=== PATIENT | female | born 1975 | race Caucasian/White ===

== ENCOUNTER 2017-05-11 15:04 | Inpatient (IN) | payer BC ==
[2017-05-11] MEDS ORDERED: Promethazine HCl 25 MG/ML VIAL IM PRN (15:34)
[2017-05-11] MEDS ORDERED: Zolpidem Tartrate 5 MG TAB PO PRN (15:34)
[2017-05-11] MEDS ORDERED: Calcium Gluc 4.6 MEQ/10 ML (100 MG/ML) SLOW IVP PRN (15:34)
[2017-05-11] MEDS ORDERED: Acetaminophen 500 MG TAB PO PRN (15:34)
[2017-05-11] MEDS ORDERED: Ondansetron HCl/PF 4 MG/2 ML Vial IVP PRN (15:34)
--- NOTE | 2017-05-11 15:43 | PDOC.LDHP ---
Labor and Delivery H&P HPI: 42 y/o WF prior c/s with IVF dichorionic/diamnionic twin gestation. Current gestational age 36 3/7 weeks by EDC of 06/05/17. Has had normal interval rate of growth u/s and BPP 's since 30 weeks. Astma has been stable on maintenance med of nasonex/albuterol/singulair. Allergies/Adverse Reactions: Allergies Allergy/AdvReac Type Severity Reaction Status Date / Time ciprofloxacin [From Cipro] Allergy Rash Verified 04/26/16 12:25 ciprofloxacin HCl Allergy Rash Verified 04/26/16 12:25 [From Cipro] latex Allergy red, itchy Verified 04/26/16 12:25 skin Sulfa (Sulfonamide Allergy Rash Verified 04/26/16 12:25 Antibiotics)
[2017-05-11 16:18] VITALS: BMI 42.7
[2017-05-11] MEDS ORDERED: CEFAZOLIN/Water 2 GM/20 ML SYRINGE SLOW IVP SCH (16:45)
[2017-05-11] MEDS ORDERED: Bicitra 30 ML UDCUP PO SCH (16:45)
[2017-05-11 17:03] LABS: Hematocrit 36.8 % (36.0-47.0); Mean Platelet Volume 7.9 fL (7.4-10.4); Red Blood Cell (RBC) Count 4.08 mill/uL (4.20-5.40); White Blood Cell (WBC) Count 8.1 thou/uL (4.8-10.8)
[2017-05-11 17:18] LABS: ALT (SGPT) 19 U/L (8-55); AST (SGOT) 27 U/L (5-34); Alkaline Phosphatase 182 U/L (40-150); Anion Gap 13 mmol/L (10-20); BUN (Urea Nitrogen) 9 mg/dL (7.0-18.7); Bilirubin, Total 0.4 mg/dL (0.2-1.2); Calc. Creatinine Clearance 203 mL/min (70-130); Calcium 9.7 mg/dL (7.8-10.44); Carbon Dioxide 22 mmol/L (22-29); Chloride 105 mmol/L (98-107); Estimated GFR-MDRD Greater than 90; Globulin 2.8 g/dL (2.4-3.5); Protein, Total 5.8 g/dL (6.0-8.3)
[2017-05-12] MEDS ORDERED: Naloxone HCl 0.4 mg/ml Vial IVP PRN ×2 (06:49)
[2017-05-12] MEDS ORDERED: HYDROmorphone 2 MG/ML VIAL SLOW IVP PRN (06:49)
[2017-05-12] MEDS ORDERED: Eucerin (Mineral Oil/Petrolatum,White) 30 gm Jar TOP PRN (06:49)
[2017-05-12] MEDS ORDERED: Ondansetron HCl/PF 4 MG/2 ML Vial IVP PRN ×2 (06:49)
[2017-05-12] MEDS ORDERED: diphenhydrAMINE 50 MG/ML VIAL IVP PRN (06:49)
[2017-05-12] MEDS ORDERED: Naloxone HCl 0.4 mg/ml Vial IV PRN (06:49)
[2017-05-12] MEDS ORDERED: Promethazine HCl 25 MG SUPP PR PRN (06:49)
[2017-05-12] MEDS ORDERED: Meperidine HCl/PF 25 MG/ML VIAL SLOW IVP PRN (06:49)
[2017-05-12] MEDS ORDERED: Promethazine HCl 25 MG/ML VIAL IM PRN (06:49)
[2017-05-12] MEDS ORDERED: ePHEDrine/0.9% NaCl/PF SYRINGE 50 mg/10 ml ONE (06:59)
[2017-05-12] MEDS ORDERED: Ondansetron HCl/PF 4 MG/2 ML Vial ONE (06:59)
[2017-05-12] MEDS ORDERED: Oxytocin 10 UNITS/ML VIAL ONE (06:59)
[2017-05-12] MEDS ORDERED: Morphine PF 1 MG/ML SYR ONE (06:59)
[2017-05-12] MEDS ORDERED: Communication Order-Pharmacy FS SCH (07:00)
[2017-05-12] MEDS ORDERED: Ketorolac Tromethamine 30 MG/ML VIAL IVP SCH (07:00)
[2017-05-12] MEDS ORDERED: PHENYLEPHRINE-NS 100 MCG/ML 10 ML SYRINGE ONE (07:25)
[2017-05-12] MEDS ORDERED: Fentanyl 100 MCG/2 ML VIAL ONE (07:42)
--- NOTE | 2017-05-12 08:09 | OP ---
DATE OF SERVICE: 05/12/2017 This dictations is just to document that I was first press operator on a for twins, primary by Dr. Rosario Tyler.
[2017-05-12] MEDS ORDERED: Adacel (T-DAP) 0.5 ML VIAL IM ONE (08:24)
[2017-05-12] MEDS ORDERED: Simethicone Chewable 80 MG TAB PO PRN (08:24)
[2017-05-12] MEDS ORDERED: Lanolin Ointment 7 GM TUBE TOP PRN (08:24)
--- NOTE | 2017-05-12 09:20 | PDOC.OPDEL ---
OB Operative/Delivery Note Delivery Dr/Surgeon: Jayson Assist: Maribell Pre-Delivery Diagnosis: scheduled section Procedure/Post Delivery Dx: repeat low transverse CS Weeks gestation: 36 Anesthesia: spinal - Findings A Sex: female Weight: 6 lb 11 oz - 5 min: 8 - 10 min: 9 B Sex: male Weight: 5 lb 7 oz - 5 min: 8 - 10 min: 9 - Additional Findings/Plan Placenta delivered: manual removal Estimated blood loss: 750ml Post delivery plan: routine recovery
[2017-05-12] MEDS ORDERED: LR / Pitocin 40 units/1000 ml 1,000 ML ONE (09:35)
[2017-05-12] MEDS: Docusate (Surfak) 240 MG CAP PO SCH ×2 (10:48→20:29)
[2017-05-12] MEDS ORDERED: Sodium Chloride 0.9% 10 ML ONE (11:54)
[2017-05-12] MEDS: Prenatal Vitamin 1 TAB PO SCH (13:36)
--- NOTE | 2017-05-12 14:10 | OP ---
DATE OF SURGERY: 05/12/2017 PREOPERATIVE DIAGNOSES: 1. A 42-year-old white female, G4, P1, A2 at prior section with 36 weeks, 4 days, dichorio debra diamniotic twin gestation. 2. Mild gestational hypertension. 3. Prior section. POSTOPERATIVE DIAGNOSES: 1. A 42-year-old white female, G4, P1, A2 at prior section with 36 weeks, 4 days, dichorio debra diamniotic twin gestation. 2. Mild gestational hypertension. 3. Prior section. PROCEDURE PERFORMED: Repeat low transverse section without extension. SURGEON: Rosario Tyler M.D. FISCAL ACCOUNTANT SURGEON: Quinten Morris M.D. ANESTHESIA: Spinal block. ESTIMATED BLOOD LOSS: 750 mL. COMPLICATIONS: None. COUNTS: Correct x2. ANTIBIOTICS: Ancef 2 grams IV collection support specialist to the OR. FINDINGS: 1. Twin A vigorous female, Apgars 8 and 9, weight 6 pounds 11 ounces, clear amniotic fluid. 2. Twin B vertex presentation male, Apgars 8 and 9, weight 5 pounds 7 ounces. Clear amniotic fluid. 3. Dichorionic twin . 4. Normal appearing fallopian tubes and ovaries. DISPOSITION: Recovery room, stable. DESCRIPTION OF OPERATIVE PROCEDURE: The patient previously received informed consent in regards to surgery. She was taken back to the operating room where she received a spinal block without complic ations. She was placed in the supine position, prepped and draped in usual sterile fashion. Gordon catheter and SCDs, PlexiPulses had been placed. A Pfannenstiel incision was made through the lower abdomen through the previous scar site. It was carried down the fascia. Fascia was nicked in midli ne. Fascial incision was extended bilaterally using curved Anaya scissors. The rectus fascia was di ssected superiorly and inferiorly off the rectus muscle belly. Rectus muscle belly was divided in t he midline. The peritoneal cavity was entered. An Chacho O retractor was placed. The bladder flap was created in usual fashion. A 2 cm hysterotomy incision was made in the lower uterine segment. This was extended via finger fractionation. Twin A with amniotic bag was ruptured and delivered in the vertex presentation. The cord was doubly clamped and cut and handed to pediatric team in attend [facility]. Then, twin B with amniotic bag was ruptured and was also delivered in the vertex presentation . Cord was doubly clamped and cut and handed to the pediatric team in attendance. The placentas we re then manually extracted and sent to pathology. The uterus was curetted of any remaining placenta l fragments with dry laparotomy sponge. Hysterotomy incision was then closed with running locking # 1 Monocryl suture. An O'Grayson stitch was placed in the left angle of the uterine hysterotomy incisi on due to some actively bleeding vessels with securing hemostasis. The Chacho O retractor was then removed. The pelvis was irrigated. Again hemostasis was confirmed of the hysterotomy site. The re ctus muscle bellies were noted to be hemostatic prior to fascial closure. The fascia was closed wit h 0 PDS suture x2 in running continuous fashion. Subcutaneous tissue was irrigated and noted be hem ostatic, and was approximated with interrupted 2-0 chromic sutures. The skin was closed with staple s. Surgery was terminated. No anesthetic or surgical complications.
[2017-05-12] MEDS ORDERED: Meperidine HCl/PF 25 MG/ML VIAL IM PRN (19:00)
[2017-05-12] MEDS ORDERED: Hydrocerin (Eucerin) Cream 120 gm Jar TOP PRN (20:18)
[2017-05-12] MEDS: Ketorolac Tromethamine 30 MG/ML VIAL IVP PRN (20:28)
[2017-05-12] MEDS: hydrOXYzine 25 MG TAB PO PRN (20:29)
[2017-05-13] MEDS ORDERED: Sodium Chloride 0.9% 10 ML ONE ×2 (04:35→05:29)
[2017-05-13] MEDS: Ketorolac Tromethamine 30 MG/ML VIAL IVP PRN (05:28)
[2017-05-13] MEDS: hydrOXYzine 25 MG TAB PO PRN (05:30)
[2017-05-13 05:36] LABS: Hematocrit 34.1 % (36.0-47.0); Red Blood Cell (RBC) Count 3.73 mill/uL (4.20-5.40); White Blood Cell (WBC) Count 8.1 thou/uL (4.8-10.8)
--- NOTE | 2017-05-13 07:45 | PRG ---
POSTOPERATIVE DAY #1 DATE OF SERVICE: 05/13/2017 TIME: 0700 hours. LOCATION: , [facility], patient in room 307. In brief, this is a patient who underwent a repeat low transverse by Dr. Tyler yesterday on 05/12/2017. The preoperative diagnosis was a patient with A2 diabetes with a prior sect ion at 36 weeks and 4 days with dichorionic diamniotic twins. She also has mild gestational hyperte nsion, which prompted her delivery. For full details on the delivery, please turn to the operative dictation dictated by Dr. Tyler. I evaluated the patient on 05/13/2017 and I find the following. SUBJECTIVE: No new concerns or complaints. She states that she is doing well. She has not yet pas sed gas. OBJECTIVE: VITAL SIGNS: Temperature review shows a temperature range of 97.2 to 98.4. Last temperature this m orning was 98.0 at 0430 hours. Pulse is in the 70s to 90s, respirations are 18, blood pressure rang es from 136/66 to 122/66. GENERAL: She is in no acute distress. ABDOMEN: Soft and nontender and nondistended. LABORATORY ASSESSMENT: Hematocrit value was 34, down from an original value of 36.8. Hepatitis B s urface antigen and syphilis serologies were negative on admission. The surgical dressing is still in place that will be removed later this morning. ASSESSMENT: This is a patient who is status post repeat , postoperative day #1, with twins . PLAN: 1. Continue /postoperative care for now. 2. No evidence of hypertension at this time. 3. No evidence febrile morbidity. 4. The patient advised to ambulate as we await spontaneous passage of gas. 5. No acute concerns at this time.
[2017-05-13] MEDS: Prenatal Vitamin 1 TAB PO SCH (09:44)
[2017-05-13] MEDS: Docusate (Surfak) 240 MG CAP PO SCH ×2 (09:44→21:55)
[2017-05-13] MEDS: traMADol HCl 50 MG TAB PO PRN ×2 (13:09→23:59)
[2017-05-13] MEDS: Ibuprofen 800 MG TAB PO SCH ×2 (15:09→21:55)
[2017-05-14] MEDS: Ibuprofen 800 MG TAB PO SCH ×3 (05:57→22:00)
[2017-05-14] MEDS: Docusate (Surfak) 240 MG CAP PO SCH ×2 (08:54→22:00)
[2017-05-14] MEDS: traMADol HCl 50 MG TAB PO PRN ×2 (08:54→15:01)
[2017-05-14] MEDS: Prenatal Vitamin 1 TAB PO SCH (08:54)
--- NOTE | 2017-05-14 09:13 | PRG ---
DATE OF SERVICE: 05/14/2017 SUBJECTIVE: The patient is doing well, has adequate pain control, normal lochia, is voiding and pas sing gas. Fair bottle feeding the twins. OBJECTIVE: VITAL SIGNS: Temperature 98.0, pulse 86, respiratory rate 16, blood pressure 125/92 with range of 1 10s-130s/60s-90s. GENERAL: Nontoxic appearing female in no acute distress. LUNGS: Respirations are unlabored. ABDOMEN: Nontender and nondistended. Incision is clean, dry, and intact with geovanny. GENITOURINARY: Fundus is firm and at the umbilicus. ASSESSMENT AND PLAN: Postoperative day #2, status post delivery for twins, gestational hyp ertension. The patient is doing well. Repeat care.
[2017-05-15] MEDS: Ibuprofen 800 MG TAB PO SCH ×3 (06:06→22:04)
[2017-05-15] MEDS: traMADol HCl 50 MG TAB PO PRN ×2 (10:49→19:52)
[2017-05-15] MEDS: Docusate (Surfak) 240 MG CAP PO SCH ×2 (10:49→22:03)
[2017-05-15] MEDS: Prenatal Vitamin 1 TAB PO SCH (10:49)
--- NOTE | 2017-05-15 18:10 | PDOC.PP ---
Post Progress Note Post Day #: 3 Subjective: Doing well. Pain controlled. Minimal lochia. Both babies out of NICU. PO intake tolerated: yes Flatus: yes Ambulation: yes Vital Signs (12 hours) Temp Pulse Resp BP 05/15/17 10:45 97.7 F 70 20 05/15/17 08:50 97.7 F 70 20 155/74 H Weight Weight 241 lb - Physical Examination General: NAD Cardiovascular: RRR Respiratory: non-labored breathing Abdominal: no distention, appropriately TTP Deviation from normal: incision c/d/i with geovanny Fundus firm & at: below umbilicus Extremities: negative homans (B) Skin: CS incision dry & intact Neurological: no gross focal deficits Psychiatric: A&Ox3 Result Diagrams: 05/13/17 04:10 05/11/17 16:50 Additional Labs: Post Labs Blood Type A POSITIVE 05/11/17 16:50 Hep Bs Antigen Non-Reactive S/CO (NonReactive) 05/11/17 16:50 (1) 36 weeks gestation of Code(s): Z3A.36 - 36 WEEKS GESTATION OF Status: Resolved (2) Gestational hypertension Code(s): O13.9 - GESTATIONAL HTN W/O SIGNIFICANT PROTEINURIA, UNSP TRIMESTER Status: Resolved (3) delivery delivered Code(s): O82 - ENCOUNTER FOR DELIVERY WITHOUT INDICATION Status: Acute - Assessment/Plan Doing well post /post op. Noted mild range BPs, none severe and denies any sx. Desires to stay additional night due to babies now both out of NICU. Plan for d/c tomorrow with bed and breakfast.
[2017-05-15] MEDS ORDERED: HYDROcodone/Acetaminophen 5/325 mg Tablet PO PRN ×2 (22:46→22:52)
[2017-05-16] MEDS: Ibuprofen 800 MG TAB PO SCH ×3 (06:09→21:39)
[2017-05-16] MEDS: Prenatal Vitamin 1 TAB PO SCH (10:35)
[2017-05-16] MEDS: Docusate (Surfak) 240 MG CAP PO SCH ×2 (10:35→21:38)
[2017-05-16] MEDS: traMADol HCl 50 MG TAB PO PRN ×2 (10:39→21:39)
--- NOTE | 2017-05-16 11:57 | PDOC.PP ---
Post Progress Note Post Day #: 4. feeling better. Did have some elevated BP last night. Normal this AM Vital Signs (12 hours) Temp Pulse Resp BP 05/16/17 11:32 97.7 F 65 20 128/83 05/16/17 08:00 97.7 F 65 20 05/16/17 07:54 97.9 F 72 20 165/72 H 05/16/17 00:55 70 138/74 Weight Weight 241 lb - Physical Examination General: NAD Cardiovascular: no m/r/g, RRR Respiratory: clear to auscultation bilaterally, non-labored breathing Abdominal: + bowel sounds, lochia, no distention, appropriately TTP Result Diagrams: 05/13/17 04:10 05/11/17 16:50 Additional Labs: Post Labs Blood Type A POSITIVE 05/11/17 16:50 Hep Bs Antigen Non-Reactive S/CO (NonReactive) 05/11/17 16:50 - Assessment/Plan Isolated Systolic htn -improved this AM. Will observe today. If blood pressures elvates,then will begin amlodidpine.
[2017-05-16] MEDS: Levothyroxine Sodium 150 MCG TAB PO SCH (21:39)
[2017-05-17] MEDS: Levothyroxine Sodium 150 MCG TAB PO SCH (05:55)
[2017-05-17] MEDS: Ibuprofen 800 MG TAB PO SCH ×3 (05:55→21:44)
[2017-05-17] MEDS: traMADol HCl 50 MG TAB PO PRN (05:57)
[2017-05-17] MEDS ORDERED: cloNIDine 0.1 MG TAB PO PRN (07:43)
--- NOTE | 2017-05-17 07:48 | PDOC.PP ---
Post Progress Note Post Day #: 5 PO intake tolerated: yes Flatus: yes Ambulation: yes Vital Signs (12 hours) Temp Pulse Resp BP BP BP 05/17/17 03:01 77 137/68 05/17/17 01:20 63 178/76 H 05/17/17 01:05 67 181/81 H 05/16/17 20:00 98 F 70 16 155/70 H Weight Weight 241 lb - Physical Examination General: NAD Cardiovascular: no m/r/g, RRR Respiratory: clear to auscultation bilaterally, non-labored breathing Abdominal: + bowel sounds, lochia, no distention, appropriately TTP Result Diagrams: 05/13/17 04:10 05/11/17 16:50 Additional Labs: Post Labs Blood Type A POSITIVE 05/11/17 16:50 Hep Bs Antigen Non-Reactive S/CO (NonReactive) 05/11/17 16:50 - Assessment/Plan recurring systolic HTN...SOME ANXIETY PROVOKED WILL BEGIN AMLODIPINE 5 MG/D. CLONIDINE PRN SBP>160 IF BLOOD PRESSURE STABILIZES--POSSIBLE D/C LATER TODAY OR IN AM
[2017-05-17] MEDS: Docusate (Surfak) 240 MG CAP PO SCH ×2 (08:42→21:44)
[2017-05-17] MEDS: Amlodipine 5 MG TAB PO SCH (08:43)
[2017-05-17] MEDS: Prenatal Vitamin 1 TAB PO SCH (08:43)
[2017-05-17] MEDS: Lisinopril 10 MG TAB PO SCH (18:37)
[2017-05-18] MEDS: Ibuprofen 800 MG TAB PO SCH (04:32)
[2017-05-18] MEDS: Levothyroxine Sodium 150 MCG TAB PO SCH (04:32)
[2017-05-18] MEDS: Prenatal Vitamin 1 TAB PO SCH (08:50)
[2017-05-18] MEDS: Lisinopril 10 MG TAB PO SCH (08:51)
[2017-05-18] MEDS: Docusate (Surfak) 240 MG CAP PO SCH (08:51)
[2017-05-18] MEDS: Amlodipine 5 MG TAB PO SCH (08:51)
--- NOTE | 2017-05-18 12:21 | PDOC.PP ---
Post Progress Note Post Day #: 6 Subjective: feels better. babies doing well. Vital Signs (12 hours) Temp Pulse Resp BP BP BP BP 05/18/17 08:56 98.5 F 65 20 150/67 H 05/18/17 08:51 65 150/67 H 05/18/17 08:00 98.5 F 65 20 05/18/17 04:25 98.0 F 68 20 132/62 05/18/17 01:05 97.8 F 65 20 141/65 H 160/76 H Weight Weight 241 lb - Physical Examination General: NAD Cardiovascular: no m/r/g, RRR Respiratory: clear to auscultation bilaterally, non-labored breathing Abdominal: + bowel sounds, lochia, no distention, appropriately TTP Result Diagrams: 05/13/17 04:10 05/11/17 16:50 Additional Labs: Post Labs Blood Type A POSITIVE 05/11/17 16:50 Hep Bs Antigen Non-Reactive S/CO (NonReactive) 05/11/17 16:50 - Assessment/Plan blood pressure 130/70 now. responding to amlodipine 5mg/d and lisinopril 20 mg/ d. to continue. recheck bp's at home tid. tcb if >160/100 or <110/60. geovanny out today. Blood pressure f/u in one week.
[2017-05-18 12:45] VITALS: BP 130/61; TEMP 97.8
== END 2017-05-18 15:50 | disposition home or self-care (01) | DRG 765 ==
LOC: L&D 15:04 → 3SE 05-12 10:42 → 3SW 05-13 15:11
PROVIDERS: ADMIT Obstetrics & Gynecology; ATTEND Obstetrics & Gynecology
PROC: 10D00Z1 Extraction of Products of Conception, Low, Open Approach (ICD-10-PCS; principal; 2017-05-12)
DX: O34.211 Maternal care for low transverse scar from previous cesarean delivery (principal); O30.043 Twin pregnancy, dichorionic/diamniotic, third trimester; Z37.2 Twins, both liveborn; O99.284 Endocrine, nutritional and metabolic diseases complicating childbirth; Z3A.36 36 weeks gestation of pregnancy; O32.1XX0 Maternal care for breech presentation, not applicable or unspecified; O13.4 Gestational [pregnancy-induced] hypertension without significant proteinuria, complicating childbirth; O99.52 Diseases of the respiratory system complicating childbirth; J45.909 Unspecified asthma, uncomplicated; E03.9 Hypothyroidism, unspecified
CPT/HCPCS: 36415; 59025; 80053; 85027; 86780; 86850; 86900; 86901; 87340; 88307; 90471; 90732; A4216; G0009; J1200; J1885; J2274; J2405; J2590; J3010